=== PATIENT | male | born 1965 | race Caucasian/White ===

== ENCOUNTER 2022-06-06 12:47 | Inpatient (IN) | payer OTHER ==
[2022-06-06] MEDS ORDERED: hydrALAZINE 20 MG/ML VIAL SLOW IVP PRN (13:21)
[2022-06-06] MEDS ORDERED: Acetaminophen 325 MG TAB PO PRN (13:26)
[2022-06-06] MEDS ORDERED: Morphine 2 MG/ML VIAL SLOW IVP PRN (13:26)
[2022-06-06] MEDS ORDERED: HYDROcodone/Acetaminophen 5/325 mg Tablet PO PRN (13:27)
[2022-06-06] MEDS ORDERED: Labetalol HCl 100 MG/20 ML VIAL ONE (13:28)
[2022-06-06] MEDS: Labetalol HCl 100 MG/20 ML VIAL SLOW IVP PRN ×2 (15:59→16:48)
[2022-06-06 16:20] VITALS: BMI 29.2
[2022-06-06] MEDS: Acetaminophen/Codeine 30-300mg Tablet PO PRN (18:49)
[2022-06-06 22:41] LABS: SARS-CoV-2 NAA Rapid Test Not Detected (NotDetected)
[2022-06-07] MEDS: Acetaminophen/Codeine 30-300mg Tablet PO PRN ×5 (00:23→20:26)
[2022-06-07] MEDS: Dexamethasone 4 MG TAB PO SCH ×5 (00:23→23:46)
[2022-06-07 06:48] LABS: #Monocytes 0.2 thou/uL (0.11-0.59); #Neutrophils 11.1 thou/uL (1.40-6.50); %Basophils 0.2 % (0.0-1.0); %Eosinophils 0.3 % (0.0-10.0); %Lymphocytes 7.7 % (21.0-51.0); %Monocytes 1.9 % (0.0-10.0); %Neutrophils 89.9 % (42.0-75.0); Hemoglobin 15.1 g/dL (14.0-18.0); Mean Corpuscular HGB CONC 34.8 g/dL (32.0-36.0); Mean Corpuscular Hemoglobin 30.4 pg (27.0-31.0); Mean Corpuscular Volume 87.3 fL (78.0-98.0); Mean Platelet Volume 8.1 fL (7.4-10.4); Platelet Count 294 thou/uL (130-400); RBC Distribution Width 12.4 % (11.5-14.5); Red Blood Cell (RBC) Count 4.95 mill/uL (4.70-6.10); White Blood Cell (WBC) Count 12.4 thou/uL (4.8-10.8)
[2022-06-07 07:08] LABS: ALT (SGPT) 19 U/L (8-55); AST (SGOT) 13 U/L (5-34); Albumin 4.5 g/dL (3.5-5.0); Alkaline Phosphatase 115 U/L (40-110); Anion Gap 15 mmol/L (10-20); BUN (Urea Nitrogen) 13 mg/dL (8.4-25.7); Bilirubin, Total 0.8 mg/dL (0.2-1.2); Calc. Creatinine Clearance 0 mL/min (70-130); Calcium 9.7 mg/dL (7.8-10.44); Carbon Dioxide 22 mmol/L (22-29); Chloride 104 mmol/L (98-107); Estimated GFR 89; Globulin 3.1 g/dL (2.4-3.5); Glucose 131 mg/dL (70-105); Potassium 4.2 mmol/L (3.5-5.1); Protein, Total 7.6 g/dL (6.0-8.3); Sodium 137 mmol/L (136-145)
[2022-06-07] MEDS: Losartan 25 MG TAB PO SCH (08:20)
[2022-06-07] MEDS: Citalopram 20 MG TAB PO SCH (08:20)
[2022-06-07] MEDS: Loratadine 10 MG TAB PO SCH (08:21)
[2022-06-07] MEDS ORDERED: diphenhydrAMINE 50 MG/ML VIAL IVP PRN (08:49)
[2022-06-07] MEDS ORDERED: Ondansetron PF 4 MG/2 ML Vial IVP PRN (09:30)
[2022-06-07] MEDS ORDERED: Iopamidol-370 76% 500 ML 1 ML ONE (10:05)
[2022-06-07 14:36] LABS: Cardiac Risk 7.6 (Less than 4.5)
[2022-06-08] MEDS: Dexamethasone 4 MG TAB PO SCH (05:30)
[2022-06-08 07:37] LABS: Hemoglobin 14.9 g/dL (14.0-18.0); Mean Corpuscular HGB CONC 33.2 g/dL (32.0-36.0); Mean Corpuscular Hemoglobin 29.3 pg (27.0-31.0); Mean Corpuscular Volume 88.2 fL (78.0-98.0); Mean Platelet Volume 8.1 fL (7.4-10.4); Platelet Count 319 thou/uL (130-400); RBC Distribution Width 12.5 % (11.5-14.5); White Blood Cell (WBC) Count 18.9 thou/uL (4.8-10.8)
[2022-06-08 07:53] LABS: Anion Gap 17 mmol/L (10-20); BUN (Urea Nitrogen) 19 mg/dL (8.4-25.7); Calc. Creatinine Clearance 0 mL/min (70-130); Calcium 9.9 mg/dL (7.8-10.44); Carbon Dioxide 22 mmol/L (22-29); Chloride 103 mmol/L (98-107); Estimated GFR 90; Glucose 119 mg/dL (70-105); Potassium 4.7 mmol/L (3.5-5.1); Sodium 137 mmol/L (136-145)
[2022-06-08 08:00] VITALS: TEMP 99.2
[2022-06-08 08:05] LABS: Hemoglobin A1c 5.2 % (4.0-6.0)
[2022-06-08] MEDS: Losartan 25 MG TAB PO SCH (08:51)
[2022-06-08] MEDS: Acetaminophen/Codeine 30-300mg Tablet PO PRN ×2 (08:52→14:19)
[2022-06-08] MEDS: Citalopram 20 MG TAB PO SCH (08:52)
[2022-06-08] MEDS: Loratadine 10 MG TAB PO SCH (08:54)
[2022-06-08 10:01] LABS: Band 9 % (5-11); Lymphocytes 5 % (21-51); MDiff Complete? YES; Monocytes 3 % (0-10); Neutrophil 83 % (42-75); Platelet Morphology Comment Appears Adequate; Polychromasia SLIGHT = 2-3 cells (100X) (0-2/hpf)
[2022-06-08 12:32] VITALS: BP 145/56
[2022-06-08] MEDS ORDERED: Lactated Ringer's 1,000 ML IV SCH (13:45)
[2022-06-08] MEDS ORDERED: Atorvastatin Calcium 40 MG TAB PO SCH (21:00)
== END 2022-06-08 15:55 | disposition home or self-care (01) | DRG 64 ==
LOC: ERS 12:47 → ERHOLD 13:29 → CCU 15:48 → NEURO 06-07 11:32
PROVIDERS: ADMIT Family Medicine; ATTEND Student in an Organized Health Care Education/Training Program
DX: I61.1 Nontraumatic intracerebral hemorrhage in hemisphere, cortical (principal); G93.6 Cerebral edema; Z20.822 Contact with and (suspected) exposure to COVID-19; N40.0 Benign prostatic hyperplasia without lower urinary tract symptoms; I10 Essential (primary) hypertension; F41.9 Anxiety disorder, unspecified; E78.5 Hyperlipidemia, unspecified; R73.01 Impaired fasting glucose; Z79.899 Other long term (current) drug therapy; Z79.82 Long term (current) use of aspirin
CPT/HCPCS: 36415; 70450; 71260; 74177; 80048; 80053; 80061; 83036; 84443; 85025; 96374; J1200; J2405; J8540; Q9967; U0002

== ENCOUNTER 2022-07-21 09:31 | Outpatient (CLI) | payer OTHER | END 2022-07-21 09:32 | disposition home or self-care (01) | LOC: MRI 09:31 | PROVIDERS: ATTEND Physician Assistant | DX: S06.2XAS Diffuse traumatic brain injury with loss of consciousness status unknown, sequela (principal) | CPT/HCPCS: 70553 ==

== ENCOUNTER 2023-06-03 10:00 | Outpatient (CLI) | payer OTHER ==
[2023-06-03] MEDS ORDERED: Magnevist 469MG/ML 20 ML VIAL ONE (13:07)
== END 2023-06-03 10:01 | disposition home or self-care (01) ==
LOC: BICMRI 10:00
PROVIDERS: ATTEND Surgery
DX: I61.9 Nontraumatic intracerebral hemorrhage, unspecified (principal)
CPT/HCPCS: 70553; A9579